=== PATIENT | female | born 2000 | race Caucasian/White ===

== ENCOUNTER 2018-09-22 09:59 | Emergency (ER) | payer MEDICAID ==
[~2018-09-22] VITALS: Ht 165.1 cm; Wt 76.8 kg
[2018-09-22 10:17] VITALS: Ht 165.1 cm; Wt 76.8 kg
[2018-09-22] MEDS ORDERED: PRENAVITE1 TAB PO (10:19)
[2018-09-22 10:47] LABS: BASOPHILS 0 % (0-2); EOSINOPHILS 0 % (0-7); HEMATOCRIT 41.4 % (36.0-48.0); HEMOGLOBIN 14.5 g/dL (12-16); IMMATURE GRANULOCYTES 0.2 % (0-5); MCV 82.8 fL (80.0-100.0); MEAN PLATELET VOLUME 9.1 fL (7.4-10.4); MONOCYTES 8.4 % (2-11); NEUTROPHILS 86.4 % (40-80); PLATELET COUNT 247 10x3/uL (130-400); RDW 13.3 % (11.5-14.5); WBC 12.1 10x3/uL (4.8-10.8)
[2018-09-22 11:07] LABS: ALBUMIN 4.3 g/dL (3.4-5.0); ALKALINE PHOSPHATASE 55 U/L (46-116); ALT (SGPT) 66 U/L (10-68); AMYLASE - SERUM 31 U/L (25-115); BILIRUBIN - TOTAL 0.36 mg/dL (0.2-1.3); CALC OSMOLALITY 277 mosm/kg (275-300); CALCIUM 9.2 mg/dL (8.5-10.1); CARBON DIOXIDE 22.5 mmol/L (21.0-32.0); CHLORIDE - SERUM 100 mmol/L (98-107); CREATININE - SERUM 0.9 mg/dL (0.6-1.3); GLUCOSE 132 mg/dL (74-106); LIPASE 82 U/L (73-393); POTASSIUM - SERUM 3.2 mmol/L (3.5-5.1); PROTEIN - SERUM 8.5 g/dL (6.4-8.2); SODIUM 138 mmol/L (136-145); UREA NITROGEN 13 mg/dL (7-18); eGFR NON AFRICAN AMERICAN 85 mL/min (90-120)
[2018-09-22 11:33] LABS: HCG SERUM POSITIVE (NEGATIVE)
[2018-09-22] MEDS ORDERED: PHENERGAN25 M1 PO (12:08)
[2018-09-22 12:28] LABS: APPEARANCE CLEAR (CLEAR); BILIRUBIN NEGATIVE (NEGATIVE); COLOR YELLOW (YELLOW); GLUCOSE NEGATIVE (NEGATIVE); KETONE MODERATE mg/dL (NEGATIVE); NITRITE NEGATIVE (NEGATIVE); PROTEIN NEGATIVE (NEGATIVE); SPECIFIC GRAVITY 1.015 (1.005-1.020); UROBILINOGEN NORMAL (NORMAL)
[2018-09-22 12:59] VITALS: BP 125/68
== END 2018-09-22 13:00 | disposition home or self-care (01) ==
LOC: D.ER 09:59
PROVIDERS: Family Medicine
DX: O21.9 Vomiting of pregnancy, unspecified (principal); Z3A.01 Less than 8 weeks gestation of pregnancy; E87.6 Hypokalemia

== ENCOUNTER 2018-09-24 17:05 | Emergency (ER) | payer MEDICAID ==
[~2018-09-24] VITALS: Ht 165.1 cm; Wt 74.1 kg
[~2018-09-24 17:05] MED LIST: PHENERGAN25 M1 PO; PRENAVITE1 TAB PO
[2018-09-24 17:16] VITALS: Ht 165.1 cm; Wt 74.1 kg
[2018-09-24] MEDS ORDERED: FLUTICASONE PRO16 GM NASAL (19:24)
[2018-09-24] MEDS ORDERED: PHENERGAN12.5 MG RC (19:24)
[2018-09-24] MEDS ORDERED: PEPCID AC20 MG PO (19:24)
[2018-09-24 19:40] VITALS: BP 122/79
== END 2018-09-24 19:40 | disposition home or self-care (01) ==
LOC: D.ER 17:05
DX: O21.9 Vomiting of pregnancy, unspecified (principal); Z3A.01 Less than 8 weeks gestation of pregnancy; K29.70 Gastritis, unspecified, without bleeding; J06.9 Acute upper respiratory infection, unspecified

== ENCOUNTER 2018-11-03 07:44 | Emergency (ER) | payer MEDICAID ==
[~2018-11-03] VITALS: Ht 165.1 cm; Wt 71.0 kg
[~2018-11-03 07:44] MED LIST changes: +FLUTICASONE PRO16 GM NASAL; +PEPCID AC20 MG PO; +PHENERGAN12.5 MG RC
[2018-11-03 07:50] VITALS: Ht 165.1 cm; Wt 71.0 kg
[2018-11-03 08:17] LABS: BASOPHILS 0.1 % (0-2); EOSINOPHILS 0 % (0-7); HEMATOCRIT 39.1 % (36.0-48.0); HEMOGLOBIN 13.8 g/dL (12-16); IMMATURE GRANULOCYTES 0.2 % (0-5); LYMPHOCYTES 8.2 % (15-50); MCH 28.8 pg (26.0-34.0); MCHC 35.3 g/dL (31.0-37.0); MCV 81.6 fL (80.0-100.0); MEAN PLATELET VOLUME 9.2 fL (7.4-10.4); MONOCYTES 5.5 % (2-11); PLATELET COUNT 247 10x3/uL (130-400); RBC 4.79 10x6/uL (4.00-5.40); RDW 13.2 % (11.5-14.5); WBC 9.6 10x3/uL (4.8-10.8)
[2018-11-03 08:56] LABS: ALBUMIN 4.2 g/dL (3.4-5.0); ALKALINE PHOSPHATASE 43 U/L (46-116); ALT (SGPT) 57 U/L (10-68); AMYLASE - SERUM 35 U/L (25-115); BILIRUBIN - TOTAL 0.51 mg/dL (0.2-1.3); CALC OSMOLALITY 273 mosm/kg (275-300); CALCIUM 9.6 mg/dL (8.5-10.1); CHLORIDE - SERUM 97 mmol/L (98-107); CREATININE - SERUM 0.8 mg/dL (0.6-1.3); GLUCOSE 155 mg/dL (74-106); HCG - QUANTITATIVE (MATERNAL) 40346 mIU/mL; LIPASE 76 U/L (73-393); PROTEIN - SERUM 7.9 g/dL (6.4-8.2); SODIUM 136 mmol/L (136-145); UREA NITROGEN 11 mg/dL (7-18); eGFR NON AFRICAN AMERICAN > 90 mL/min (90-120)
[2018-11-03 09:04] LABS: POTASSIUM - SERUM 2.9 mmol/L (3.5-5.1)
[2018-11-03 09:12] LABS: APPEARANCE CLEAR (CLEAR); COLOR YELLOW (YELLOW); NITRITE NEGATIVE (NEGATIVE); SPECIFIC GRAVITY 1.025 (1.005-1.020)
[2018-11-03 09:13] LABS: BILIRUBIN NEGATIVE (NEGATIVE); GLUCOSE NEGATIVE (NEGATIVE); KETONE LARGE mg/dL (NEGATIVE); PROTEIN NEGATIVE (NEGATIVE); UROBILINOGEN NORMAL (NORMAL)
[2018-11-03] MEDS ORDERED: EFFER-K 25 MEQ25 MEQ PO (09:29)
[2018-11-03 09:49] VITALS: BP 136/88
== END 2018-11-03 09:50 | disposition home or self-care (01) ==
LOC: D.ER 07:44
PROVIDERS: Emergency Medicine
DX: O26.891 Other specified pregnancy related conditions, first trimester (principal); Z3A.10 10 weeks gestation of pregnancy; A08.4 Viral intestinal infection, unspecified; R11.2 Nausea with vomiting, unspecified; E87.6 Hypokalemia